=== PATIENT | female | born 1940 | race Caucasian/White ===

== ENCOUNTER 2016-11-26 13:27 | Emergency (ER) | payer OTHER ==
[~2016-11-26 13:27] MED LIST: ACETAMINOPHEN325 MG PO; CELEXA20 MG PO; COUMADIN3 MG PO; COUMADIN7.5 MG PO; FLOVENT IH; IPRAT-ALBUT 0.5-3 ML NEB; LANOXIN250 MCG PO; LIPITOR20 MG PO; METOPROLOL TART25 MG PO; MUCINEX600 MG PO; NEURONTIN300 MG PO; PREDNISONE10 MG PO; TESSALON PERLE100 MG PO; TRAVATAN Z2.5 ML OU; TRILEPTAL150 MG PO; VENTOLIN HFA8 GM IH; XOPENEX HFA15 GM IH
== END 2016-11-26 17:17 | disposition home or self-care (01) ==
LOC: ER 13:27
DX: E86.0 Dehydration (principal); E87.6 Hypokalemia; E83.42 Hypomagnesemia; J44.9 Chronic obstructive pulmonary disease, unspecified; F32.9 Major depressive disorder, single episode, unspecified; I48.91 Unspecified atrial fibrillation; G43.909 Migraine, unspecified, not intractable, without status migrainosus; H40.9 Unspecified glaucoma; E78.00 Pure hypercholesterolemia, unspecified; Z86.73 Personal history of transient ischemic attack (TIA), and cerebral infarction without residual deficits; Z79.01 Long term (current) use of anticoagulants; Z79.899 Other long term (current) drug therapy; Z88.5 Allergy status to narcotic agent; Z88.8 Allergy status to other drugs, medicaments and biological substances
CPT/HCPCS: 36415; 96361; 96365; 96375